=== PATIENT | male | born 1955 | race Caucasian/White ===

== ENCOUNTER 2018-06-15 07:02 | Day surgery (SDC) | payer OTHER ==
[2018-06-15] MEDS ORDERED: POLYMYXIN/BACITRACIN 1L IRRIG IRR (08:30)
[2018-06-15] MEDS: SOD CHLORIDE 0.9% 1,000 ML IV (08:30)
[2018-06-15] MEDS: LIDOCAINE 1% (MPF) 5 ML VIAL (10:10)
[2018-06-15] MEDS ORDERED: HYDROCODONE/APAP (5/325) TAB PO (11:00)
== END 2018-06-15 11:15 | disposition home or self-care (01) ==
LOC: SDS 07:02
DX: K11.23 Chronic sialoadenitis (principal)
CPT/HCPCS: 10005; 76942; 88307; 88313; 88341; 88342